=== PATIENT | female | born 1975 | race Caucasian/White ===

== ENCOUNTER 2019-04-14 11:21 | Inpatient (IN) ==
[2019-04-14] MEDS ORDERED: ZOFRAN IV ONE ×2 (12:29→16:05)
[2019-04-14] MEDS ORDERED: TORADOL IV ONE (12:29)
[2019-04-14] MEDS ORDERED: NS 1,000 ML IV ONE ×2 (12:29→18:36)
[2019-04-14] MEDS ORDERED: MORPHINE IV ONE ×2 (12:29→16:05)
--- NOTE | 2019-04-14 12:43 | Diag Imaging Result Doc PS360 ---
EXAM: KUB ABDOMEN 04/14/2019 HISTORY: bilateral flank pain, hx stones TECHNIQUE: KUB COMMENT: There is stool in the ascending colon. There is no evidence of bowel obstruction organomegaly or mass. There is curvature of the lumbar spine with convexity to the left. There is an apparent stone just above the right transverse process of L2. IMPRESSION: Possible stone in the right ureteropelvic junction. Otherwise nonspecific abdomen. Electronically signed by Patel Sutton 04/14/2019 12:40 PM
[2019-04-14 13:26] LABS: URINE SOURCE CLEAN CATCH
[2019-04-14 13:45] LABS: BILIRUBIN URINE NEGATIVE (NEGATIVE); BLOOD URINE MODERATE (NEGATIVE); COLOR YELLOW; GLUCOSE URINE NEGATIVE (NEGATIVE); KETONE URINE NEGATIVE (NEGATIVE); LEUKOCYTES URINE LARGE (NEGATIVE); NITRITE URINE POSITIVE (NEGATIVE); PH URINE 5.5; PROTEIN URINE 50 mg/dL (NEGATIVE); SP GRAVITY URINE 1.028; TURBIDITY URINE HAZY (CLEAR); UROBILINOGEN URINE NORMAL (NORMAL)
[2019-04-14 13:46] LABS: UR EPITHELIAL CELLS <10 /HPF (<10); URINE BACTERIA 4+ /HPF; URINE RBC TNTC /HPF (<10); URINE WBC TNTC /HPF (<10)
[2019-04-14 13:59] LABS: BASO# 0.02 X1000 (0.0-0.2); BASO% 0.2 % (0.0-0.8); EOS# 0.08 X1000 (0.0-0.7); EOS% 0.6 % (0.0-10.0); HEMATOCRIT 41.9 % (37.0-47.0); HEMOGLOBIN 14.1 g/dL (12.0-16.0); IMM GRAN# 0.03 X1000 (0.0-0.04); IMM GRAN% 0.2 % (0.0-0.5); LYMPH# 1.25 X1000 (1.2-3.4); LYMPH% 9.8 % (20.5-51.1); MCH 31.7 PG (27-31); MCHC 33.7 g/dL (33-37); MCV 94.2 FL (81-99); MONO% 4.7 % (1.7-9.3); MPV 10.1 FL (7.4-10.4); NEUT# 10.83 X1000 (1.4-6.5); NEUT% 84.5 % (42.2-75.2); PLT 267 X1000 (130-400); RBC 4.45 XMIL (4.2-5.4); RDW 11.8 % (11.5-14.5); WBC 12.81 X1000 (4.8-10.8)
[2019-04-14 14:56] LABS: ALB/GLOB RATIO 1.9; ALBUMIN 4.4 g/dL (3.5-5.0); CALCIUM 8.5 mg/dL (8.8-10.2); POTASSIUM 3.8 mmol/L (3.5-5.1); TOTAL BILIRUBIN 0.26 mg/dL (0.20-1.00); TOTAL PROTEIN 6.7 g/dL (6.3-8.3)
--- NOTE | 2019-04-14 15:07 | Diag Imaging Result Doc PS360 ---
EXAM: CT RENAL STONE SEARCH 04/14/2019 HISTORY: right flank pain, hx of stones TECHNIQUE: This exam was performed using automated exposure control, adjustment of mA or kV according to patient size, and/or use of iterative reconstruction technique. COMMENT: The current study is compared with 07/13/2012. There are calcifications in the spleen. There are no apparent gallstones. There is no evidence of nephrolithiasis. There is hydronephrosis on the right and there is a stone at the ureteropelvic junction on the right which was not previously present and which measures over 7 mm. There has been appendectomy. There is diverticulosis in the sigmoid colon without evidence of diverticulitis. There is no evidence of free air or free fluid. The regional skeleton appears to be intact. IMPRESSION: Obstructing stone at the right UPJ. Electronically signed by Patel Sutton 04/14/2019 3:05 PM
[2019-04-14] MEDS ORDERED: ROCEPHIN 1 GM in NS 50 ML IV ONE (16:05)
[2019-04-14] MEDS ORDERED: ZOFRAN ODT PO ONE (17:21)
[2019-04-14] MEDS ORDERED: TYLENOL PO ONE (17:23)
--- NOTE | 2019-04-14 17:39 | PROVIDER DOCUMENTATION ---
This chart was entered by Jesus Chandra Scribe, acting as scribe for Will June MD. HPI-Abdominal Pain/GI Problem - General Chief Complaint: Female Stated Complaint: FEMALE Time Seen by Provider: 04/14/19 12:18 Source: patient Allergies/Adverse Reactions: Patient Allergies Allergy/AdvReac Type Severity Reaction Status Date / Time codeine [Codeine] Allergy Mild HIVES Verified 06/12/18 08:29 Home Medications: Home Medication List Medication Instructions Recorded Confirmed Last Taken Type Citalopram [Celexa] 40 mg PO DAILY 01/31/13 11/06/18 11/06/18 History Levothyroxine [Synthroid] 75 microgm PO DAILY 01/31/13 11/06/18 11/06/18 History Cetirizine HCl [Zyrtec] 10 mg PO DAILY 06/10/18 11/06/18 11/05/18 History - History of Present Illness-ABD Nature of Presenting Problems: 43 y/o F presents to the ED c/o right flank pain. Onset around 0800 while at work. Patient reports since the pain started she has had nausea and vomiting. Patient does report some diaphoresis prior to vomiting. Patient reports a known history of kidney stones and had has lithotripsy previously. Patient has seen Dr Alfonso in the past. Patient denies fever, diarrhea and all other symptoms. Abdominal Pain Onset Location: reports: flank Quality of Pain: reports: aching Severity in ED: reports: moderate Onset/Duration: reports: 4-6 hours ago Timing: reports: still present Activities at Onset: reports: none Modifying Factors: improves with: nothing Associated Symptoms: reports: diaphoresis, nausea, vomiting Similar Symptoms Previously?: Yes Recently seen or treated by another doctor?: No Review of Systems - Adult - REVIEW OF SYSTEMS - ADULT Constitutional: denies: chills, fever Eyes: reports: no symptoms reported Ears, Nose, Mouth & Throat: reports: no symptoms reported Cardiovascular: denies: chest pain, palpitations Respiratory: denies: shortness of breath, wheezing Gastrointestinal: reports: abdominal pain, nausea, vomiting. denies: diarrhea Genitourinary: reports: flank pain. denies: dysuria, frequency Musculoskeletal: reports: no symptoms reported Integumentary: reports: no symptoms reported Neurological: reports: no symptoms reported Psychiatric: reports: no symptoms reported Endocrine: reports: no symptoms reported Hematologic/Lymphatic: reports: no symptoms reported Allergic/Immunologic: reports: no symptoms reported All Other Systems: Reviewed and Negative Past History - Adult - PAST MEDICAL HISTORY-ADULT Review of Records: reports: Nursing Assessment Review, Medications Reviewed Major Childhood Illnesses: reports: denies history Cardiovascular: reports: denies history Respiratory: reports: denies history Gastrointestinal: reports: denies history Obstetrical/Gynecological: reports: denies history Genitourinary: reports: kidney stones Musculoskeletal: reports: denies history Neurological: reports: headaches/migraines Psychiatric: reports: anxiety Endocrine/Immune: reports: thyroid disorder Other Conditions: reports: denies history - PRIOR SURGERIES/PROCEDURES Surgical/Procedure History: reports: appendectomy, other - IMMUNIZATION STATUS Childhood Immunizations: See Nurse Assessment Flu Vaccine: See Nurse Assessment Physical Exam-General - PHYSICAL EXAM-ADULT Initial Vital Signs Reviewed: Yes - CONSTITUTIONAL General Appearance: alert, no apparent distress - HEAD, EARS, NOSE, MOUTH & THROAT HENMT: moist mucous membranes - NECK Neck: full range of motion, normal inspection - RESPIRATORY Respiratory: lungs clear, normal breath sounds, no respiratory distress, no ac cessory muscle use - CARDIOVASCULAR Cardiovascular: normal peripheral pulses, regular rate, rhythm - GASTROINTESTINAL (ABDOMEN) Abdominal Exam: non tender, soft - MUSCULOSKELETAL Back Exam: CVA tenderness (right with light percussion) - SKIN Integumentary: normal color, warm/dry - PSYCHIATRIC Psych/Mental Status: normal mood/affect, oriented x 3 Progress - PLAN OF CARE/RESULTS Progress/Plan/Lab Results: Vital Signs - 8 hr 04/14/19 11:23 Temperature 97.8 F Pulse Rate 88 Respiratory Rate 16 Blood Pressure 131/81 O2 Sat by Pulse Oximetry 97 Orders Category Date Time Status ED: Orthostatic Vital Signs (E as directed Care 04/14/19 12:[address] RENAL STONE SEARCH [CT] Stat Exams 04/14/19 12:30 Ordered KUB ABDOMEN [RAD] Stat Exams 04/14/19 12:14 Taken CBC WITH ELECTRONIC DIFF [HEME] Stat Lab 04/14/19 12:30 Uncollected COMPREHENSIVE METABOLIC PANEL [CHEM] Stat Lab 04/14/19 12:30 Uncollected URINALYSIS W/POSS RFLX CULT [URINALYSIS] Stat Lab 04/14/19 12:13 Uncollected 0.9% Sodium Chloride Inj [Ns] 1,000 ml Med 04/14/19 12:29 Active IV 999 mls/hr Ketorolac [Toradol] Med 04/14/19 12:29 Discontinued 30 mg IV NOW ONE Morphine Med 04/14/19 12:29 Discontinued 4 mg IV NOW ONE Ondansetron [Zofran] Med 04/14/19 12:29 Discontinued 4 mg IV NOW ONE Result Diagrams: 04/14/19 13:50 04/14/19 13:50 - REASSESSMENT Reassessment #1 Time Reassessed: 16:10 Status: unchanged (Patient still hurting after IV morphine/zofran/toradol. WIll repeat Morphine/zofran and give Rocephin for UTI. Will call Drs. Alfonso and Danika) - CT/MRI 1 CT Study: Renal Stone Impression: Abnormal ( EXAM: CT RENAL STONE SEARCH 04/14/2019 HISTORY: right flank pain, hx of stones TECHNIQUE: This exam was performed using automated exposure control, adjustment of mA or kV according to patient size, and/or use of iterative reconstruction technique. COMMENT: The current study is compared with 07/13/2012. There are calcifications in the spleen. There are no apparent gallstones. There is no evidence of nephrolithiasis. There is hydronephrosis on the right and there is a stone at the ureteropelvic junction on the right which was not previously present and which measures over 7 mm. There has been appendectomy. There is diverticulosis in the sigmoid colon without evidence of diverticulitis. There is no evidence of free air or free fluid. The regional skeleton appears to be intact. IMPRESSION: Obstructing stone at the right UPJ. Electronically signed by Patel Sutton 04/14/2019 3:05 PM 04/14/19 3609 Interpreting Physician: Patel Sutton MD Dictated Date/Time: 04/14/19 1506 cc: Will June MD; Ok Garnica MD), See EMR Report - CONSULTS/PCP/HOSPITALIST Notification #1 *Consult/PCP/Hospitalist*: Kaden paged [phone] #2 Consult: Danika paged at 1600 Time Discussed: 17:38 (Pizarro) Departure - Departure Date of Disposition Decision: 04/14/19 Time of Disposition Decision: 16:12 DIAGNOSIS: Ureteral obstruction, right, Right distal ureteral calculus, Pyelonephritis of right kidney Disposition: ADMITTED INPATIENT 09 Certified Medical Emergency: Emergent Condition: Fair Referrals and Follow-Ups: Ok Garnica MD [Primary Care Provider] - - Critical Care Note This patient required my direct & personal management of CC.: No Attestation - Physician/ PRASANNA Attestation Patient care was provided by Advanced Practice Provider:: No The physician spent face to face time with patient:: Yes Advanced Practice Provider documentation review:: Supervising physician onsite and consulted in the evaluation and care of this patient. The physician did have a face to face encounter with the patient. This chart was documented by the indicated scribe, (Jesus Chandra Scribe) and accurately reflects the services I performed and decisions made by me, Will June MD, as attested by the provider's signature.
[2019-04-14] MEDS ORDERED: MORPHINE IV PRN (18:36)
[2019-04-14] MEDS ORDERED: TYLENOL PO PRN (18:36)
[2019-04-14] MEDS: MORPHINE IV PRN (19:12)
[2019-04-14] MEDS: ZOFRAN IV PRN ×2 (19:14→22:56)
--- NOTE | 2019-04-14 21:34 | HISTORY AND PHYSICAL ---
CHIEF COMPLAINT: Dysuria and right flank pain. HISTORY OF PRESENT ILLNESS: The patient is a 43-year-old white female who has had kidney stones on 4 or 5 previous occasions, who presents with some burning on urination and right flank pain. Thought she might be getting another stone. Came to the emergency room. CT scan was done which shows a greater than 7 mm stone at the right UP junction. Urinalysis shows WBCs too numerous to count, RBCs too numerous to count, 4+ bacteria in the blood, positive nitrite. White count 12,810, hemoglobin 14.1, hematocrit 41.9. Emergency room has already talked with Urology who plans on removing the stone, either through lithotripsy or basket retrieval, but needed her admitted to the hospital, and her urinary tract infection treated as well. PAST MEDICAL HISTORY: Includes: 1. Lumbar disk disease, for which she has had 2 laminectomies. 2. Tonsillectomy. 3. Appendectomy. 4. History of medullary thyroid carcinoma, for which she has had either 1 or 2 surgeries and has seen a specialist in the [facility] now. ALLERGIES: Codeine; breaks out in a rash and gets nauseated from it. SOCIAL HISTORY: Patient is , has no children. Did not get drinking and smoking history yet. REVIEW OF SYSTEMS: Neurological: Denies seizures, visual problems, hearing problems. Occasionally gets headaches, but does not have one today. Respiratory: Denies shortness of breath, cough, wheezing. Cardiovascular: Denies chest pains, heart palpitations, PND, orthopnea. GI: Denies hematochezia, hematemesis, melena, constipation, diarrhea, nausea, vomiting. : See Present Illness. Patient has had some burning on urination and right flank pain. Endocrine: Does have some thyroid disease after having medullary carcinoma, and is on levothyroxine. The patient has also had some depression and is on Celexa. She also takes Zyrtec for allergies. PHYSICAL EXAMINATION: VITAL SIGNS: Blood pressure is 131/81, respirations 16, pulse 88, temperature 97.8 degrees Fahrenheit. Oxygen saturation is 97% on room air. Patient has had some pain medication. HEENT: She is normocephalic. EOMS intact. PERRLA. Throat clear. Fundi benign. NECK: Supple, without thyromegaly, lymphadenopathy, or carotid bruits. LUNGS: Clear to auscultation and percussion without rhonchi, rales, or wheezes. HEART: Regular rate and rhythm without murmurs, gallops, friction rubs. ABDOMEN: Soft. Active bowel sounds. No organomegaly or tenderness. NEUROLOGICAL: Cranial nerves 2 through 12 intact grossly. Sensory and motor intact. Reflexes 1+ all. BREASTS: Exam deferred. PELVIC: Exam deferred. RECTAL: Exam deferred. CT scan shows a greater than 7 mm stone at the UV junction on the right. This was also seen on her KUB. Laboratory shows a white count of 12,810, hemoglobin 14.1. Urinalysis, as above, showed too numerous to count WBCs and RBCs. ASSESSMENT: 1. Stone at the UP junction greater than 7 mm. 2. Urinary tract infection. PLAN: Will admit, start on intravenous antibiotics. Will get cultures. Have consulted Urology already. Please see orders. cc: MD Ok Benitez Jr, MD MTDD
[2019-04-14] MEDS: TORADOL IV PRN (23:00)
[2019-04-15] MEDS: MORPHINE IV PRN ×2 (01:23→21:22)
--- NOTE | 2019-04-15 04:08 | CONSULTATION ---
DATE OF CONSULTATION: 04/14/2019 ATTENDING AND REFERRING PHYSICIAN: Dr. Garnica. CHIEF COMPLAINT: Right flank pain. HISTORY OF PRESENT ILLNESS: This 43-year-old female with long history of renal lithiasis developed severe right flank pain. Evaluation revealed an obstructing right UPJ stone. The patient has had shockwave lithotripsy, ureteroscopy, and stone extraction previously the last time 8 years ago. The patient denies taking any type of anticoagulants. PAST MEDICAL HISTORY: Thyroid cancer, depression, and renal lithiasis. CURRENT MEDICATIONS: Synthroid and Celexa. PAST SURGICAL HISTORY: Lower back surgery x2. Thyroidectomy. Breast reduction. Abdominoplasty. Appendectomy, and as noted in the HPI. SOCIAL HISTORY: She denies tobacco use, occasional alcohol use. ALLERGIES: She is allergic to codeine. REVIEW OF SYSTEMS: She states otherwise in good health. She denies any chest pains, heart disease, pulmonary or bowel problems. PHYSICAL EXAMINATION: General: A mildly obese, age apparent, normally developed, white female, oriented in all ways and cooperative. HEENT: Normal for age. Lungs: Clear. Cardiovascular: Regular rate and rhythm. Abdomen: Mildly protuberant soft, and nontender. No hepatosplenomegaly or masses. Normal bowel sounds. Back: No left CVA tenderness. Right positive CVA tenderness. Genitourinary: Deferred until surgery. Extremities: No clubbing, cyanosis, or edema. Neurologic: No focal deficits. CT stone search is as noted in the HPI. IMPRESSION: Right UPJ stone. PLAN: Right extracorporeal shockwave lithotripsy, the planned procedure, benefits versus risks, and possible complications, including, but not limited to, bleeding, infection, not being able to break up the stone, not being able to pass stone fragments, and need for further stone surgery was discussed. She seems to understand and desires to proceed. cc: MD Ok Calzada MD
[2019-04-15] MEDS: ROCEPHIN 1 GM in NS 50 ML IV SCH ×2 (04:52→16:37)
[2019-04-15] MEDS: ZOFRAN IV PRN ×2 (04:58→21:22)
[2019-04-15] MEDS ORDERED: ROCEPHIN 1 GM in NS 50 ML IV SCH (05:00)
[2019-04-15 07:33] LABS: BASO# 0.01 X1000 (0.0-0.2); BASO% 0.1 % (0.0-0.8); HEMOGLOBIN 11.5 g/dL (12.0-16.0); IMM GRAN# 0.09 X1000 (0.0-0.04); IMM GRAN% 0.6 % (0.0-0.5); LYMPH# 0.16 X1000 (1.2-3.4); MCH 31.4 PG (27-31); MCHC 32.9 g/dL (33-37); MCV 95.6 FL (81-99); MONO# 0.21 X1000 (0.11-0.59); MONO% 1.4 % (1.7-9.3); MPV 10.2 FL (7.4-10.4); NEUT% 96.9 % (42.2-75.2); PLT 174 X1000 (130-400); RBC 3.66 XMIL (4.2-5.4); RDW 12.1 % (11.5-14.5); WBC 15.37 X1000 (4.8-10.8)
[2019-04-15 07:57] LABS: ANISOCYTOSIS 1+; BANDS 2 % (0-1); LYMPHS 2 % (21-51); MONO 2 % (1-9); SEGS 94 % (42-75)
[2019-04-15 07:58] LABS: POLYCHROM 1+
[2019-04-15] MEDS: SYNTHROID PO SCH (08:05)
[2019-04-15 08:10] LABS: CALCIUM 7.2 mg/dL (8.8-10.2); CREATININE 1.4 mg/dL (0.5-0.9); POTASSIUM 4.4 mmol/L (3.5-5.1)
[2019-04-15] MEDS ORDERED: CELEXA PO SCH (09:00)
--- NOTE | 2019-04-15 14:17 | PROGRESS NOTE ---
DATE: 04/15/2019 SUBJECTIVE: Patient preparing for cystoscopic exam per Dr. Alfonso. Noted to have kidney stone at the right UPJ, 7 mm. OBJECTIVE: Vital signs: Afebrile, pulse 101, respirations 18, blood pressure 114/59, O2 saturation on room air 100%. CV: RRR. No murmur. Lungs: CTA. Extremities: No calf tenderness, cords, or edema. Neurologic: Cranial nerves intact. No focal deficits. LABORATORY: White count went up from 12.8 yesterday to 15.3, hemoglobin 11.5, platelets 174,000. Urine culture so far growing out gram-negative rods. Blood cultures x2 negative. Sodium 139, potassium 4.4, chloride 105, CO2 21, BUN 15, creatinine 1.4, up from 1.0 yesterday, glucose 111, calcium 7.2, plasma lactate yesterday 1.5. ASSESSMENT: 1. Right ureteropelvic junction stone, 7 mm. 2. Gram-negative barry urinary tract infection. 3. History of medullary thyroid carcinoma, followed at [facility]. 4. Hypothyroidism. PLAN: Continue IV Rocephin, IV fluids, with cystoscopy per Dr. Alfonso this afternoon. Repeat labs in the morning. Follow the urine culture. She is receiving Toradol and morphine for pain. Continue Synthroid. cc: Ok Garnica MD
[2019-04-15] MEDS ORDERED: DIPRIVAN 1% ONE (14:25)
[2019-04-15] MEDS ORDERED: TRANSDERM-SCOP ONE (14:34)
[2019-04-15] MEDS ORDERED: DECADRON ONE (15:01)
[2019-04-15] MEDS ORDERED: ZOFRAN ONE (15:01)
[2019-04-15] MEDS ORDERED: FENTANYL ONE (15:05)
[2019-04-15] MEDS ORDERED: XYLOCAINE-MPF 2% ONE (15:14)
[2019-04-15] MEDS: PHENERGAN ONE ×3 (15:48→16:42)
[2019-04-15] MEDS: MORPHINE ONE ×4 (15:59→17:17)
--- NOTE | 2019-04-15 21:34 | OPERATIVE NOTE ---
PROCEDURE DATE: 04/15/2019 SURGEON: Kaden. PREOPERATIVE DIAGNOSIS: Right proximal ureteral stone. POSTOPERATIVE DIAGNOSIS: Right proximal ureteral stone. PROCEDURE PERFORMED: Extracorporeal shockwave lithotripsy of the right proximal stone. ANESTHESIA: General via laryngeal mask. FINDINGS: An approximate 7 to 8 mm stone in the right proximal ureter. INDICATION FOR PROCEDURE: This 43-year-old female, with history of renolithiasis, developed severe right flank pain. Evaluation revealed a large stone obstructing the right proximal ureter. DESCRIPTION OF PROCEDURE: After informed consent was obtained from the patient, and her receiving IV antibiotics, she was taken to the main OR and placed in the supine position. General anesthesia via laryngeal mask was achieved. She was then placed in the proper position for right extracorporeal shockwave lithotripsy. The stone received 2500 shocks. Energy level was started at 1 and ramped to 7. She received 12.5 g of mannitol at the start of the case. The stone was completely fragmented. She tolerated the procedure well. Estimated blood loss was 0. Total fluoroscopy time 1 minute 32 seconds. She was taken to recovery room in good condition. cc: MD Ok Calzada MD
[2019-04-16] MEDS: ROCEPHIN 1 GM in NS 50 ML IV SCH (05:14)
[2019-04-16 07:37] LABS: BASO# 0.01 X1000 (0.0-0.2); BASO% 0.1 % (0.0-0.8); HEMATOCRIT 33.3 % (37.0-47.0); HEMOGLOBIN 10.8 g/dL (12.0-16.0); IMM GRAN# 0.06 X1000 (0.0-0.04); IMM GRAN% 0.4 % (0.0-0.5); LYMPH# 0.87 X1000 (1.2-3.4); LYMPH% 5.5 % (20.5-51.1); MCH 31.2 PG (27-31); MCHC 32.4 g/dL (33-37); MCV 96.2 FL (81-99); MONO# 0.73 X1000 (0.11-0.59); MONO% 4.6 % (1.7-9.3); MPV 10.7 FL (7.4-10.4); NEUT# 14.09 X1000 (1.4-6.5); NEUT% 89.4 % (42.2-75.2); PLT 156 X1000 (130-400); RBC 3.46 XMIL (4.2-5.4); WBC 15.76 X1000 (4.8-10.8)
[2019-04-16 07:54] LABS: BANDS 16 % (0-1); LYMPHS 2 % (21-51); MONO 2 % (1-9); SEGS 80 % (42-75)
[2019-04-16 08:02] LABS: CALCIUM 8.6 mg/dL (8.8-10.2); POTASSIUM 4.5 mmol/L (3.5-5.1)
[2019-04-16] MEDS ORDERED: FLOMAX PO ONE (09:00)
--- NOTE | 2019-04-16 10:36 | PROGRESS NOTE ---
DATE: 04/16/2019 SUBJECTIVE: Patient overall feeling better. No major pain. She underwent lithotripsy yesterday. Her blood cultures and urine culture growing out Escherichia coli. OBJECTIVE: Afebrile, pulse 55, respirations 16, blood pressure 103/70. O2 saturation 99 to 100%. CV RRR. No murmur lungs CTA. Neck:There is mild right CVA tenderness abdomen is soft, NT, ND. No mass. No HSM. Extremities: No calf tenderness cords or edema. Neuro: Cranial nerves 2-12 intact. No focal deficits. LABORATORY DATA: White count remains elevated at 15,000, platelets 156,000, hemoglobin 10.8. Sodium 140, potassium 4.5, chloride 107, CO2 23, BUN 16, creatinine 1.0, calcium 8.6. ASSESSMENT: 1. Escherichia coli sepsis/urosepsis. 2. Escherichia coli urinary tract infection complicated by kidney stone, now status post lithotripsy. 3. History of medullary carcinoma of thyroid. 4. Hypothyroidism secondary to previous [facility]roidectomy, [facility] PLAN: We will continue IV fluids but decrease the rate, ambulate the patient. Change from Rocephin to Levaquin and will monitor her leukocytosis and her clinically. If she does well, will be able to be discharged home tomorrow as Dr. Solomon is covering. cc: Ok Garnica MD
[2019-04-16] MEDS: LEVAQUIN 750 MG/D5W 750 MG/150 ML IVPB IV SCH (11:21)
[2019-04-16] MEDS: SYNTHROID PO SCH (11:22)
[2019-04-16] MEDS: ZOFRAN IV PRN ×2 (12:11→20:52)
[2019-04-16] MEDS: MORPHINE IV PRN ×2 (13:28→20:52)
[2019-04-17] MEDS: MORPHINE IV PRN ×3 (03:48→19:46)
[2019-04-17 07:13] LABS: BASO# 0.02 X1000 (0.0-0.2); BASO% 0.1 % (0.0-0.8); EOS# 0.04 X1000 (0.0-0.7); EOS% 0.3 % (0.0-10.0); HEMATOCRIT 34.1 % (37.0-47.0); HEMOGLOBIN 11.2 g/dL (12.0-16.0); IMM GRAN# 0.05 X1000 (0.0-0.04); IMM GRAN% 0.4 % (0.0-0.5); LYMPH# 1.17 X1000 (1.2-3.4); LYMPH% 8.5 % (20.5-51.1); MCH 31.1 PG (27-31); MCHC 32.8 g/dL (33-37); MCV 94.7 FL (81-99); MONO# 0.44 X1000 (0.11-0.59); MONO% 3.2 % (1.7-9.3); MPV 10.6 FL (7.4-10.4); NEUT# 12.07 X1000 (1.4-6.5); NEUT% 87.5 % (42.2-75.2); PLT 150 X1000 (130-400); WBC 13.79 X1000 (4.8-10.8)
[2019-04-17 07:35] LABS: CALCIUM 7.8 mg/dL (8.8-10.2); POTASSIUM 3.7 mmol/L (3.5-5.1)
[2019-04-17] MEDS: LEVAQUIN 750 MG/D5W 750 MG/150 ML IVPB IV SCH (08:06)
[2019-04-17] MEDS: ZOFRAN IV PRN ×2 (08:06→19:46)
[2019-04-17] MEDS: SYNTHROID PO SCH (08:06)
[2019-04-17 08:08] LABS: BANDS 6 % (0-1); LYMPHS 4 % (21-51); MONO 2 % (1-9); SEGS 88 % (42-75)
--- NOTE | 2019-04-17 13:39 | PROGRESS NOTE ---
DATE: 04/17/2019 A 43-year-old pleasant white female admitted to the hospital on 04/14/2019 for E. coli sepsis. The patient had 7 mm stone at the UP junction and had a lithotripsy done by Dr. Alfonso. The patient is anxious to go home. She has been walking around. Nevertheless, white cell count is still high and she had E. coli in the urine as well as in the blood. REVIEW OF SYSTEMS: None reported. PAST MEDICAL HISTORY: Reviewed. PAST SURGICAL HISTORY: Reviewed. MEDICATIONS: Reviewed. ALLERGIES: Codeine. PHYSICAL EXAMINATION: Vital Signs: Temperature is 97.4 degrees, pulse 66, blood pressure 131/82, oxygen saturation 93% on room air. HEENT: Within normal limits. She has a scar right across the neck from a prior thyroidectomy. Chest: Clear. Heart: Sounds are regular. Abdomen: Belly is soft. Nontender in the right flank area. Neurological: No signs of neurological deficits. Rest of the exam is benign. INVESTIGATIONS: White cell count 13.79, hematocrit 34, and platelets 150. Sodium 139, potassium 3.7, chloride 105, BUN 12, and creatinine 1. Blood cultures and urine cultures positive for E. coli. ESBL is negative, sensitive to Levaquin. ASSESSMENT AND PLAN: 1. Escherichia coli sepsis. Continue IV Levaquin. 2. Status post near total thyroidectomy for medullary carcinoma of the thyroid under the care of [facility] and the [facility]. Positive lymph nodes. Follow up on calcitonin levels remission. 3. Hypothyroidism. On Synthroid 75 mcg daily. 4. Calcium levels are normal. I explained to the patient that we will continue IV antibiotics until the white cell count has come back to normal and repeat the blood cultures today. 5. History of kidney stones, status post lithotripsy on the right side by ryley Rutledge. Continue on a low oxalate diet. Level of documentation is 35 minutes. cc: MD kO Oh MD [facility]
[2019-04-18] MEDS: ZOFRAN IV PRN ×5 (01:07→22:17)
[2019-04-18] MEDS: MORPHINE IV PRN ×6 (01:07→22:17)
[2019-04-18] MEDS: TORADOL IV PRN (02:33)
[2019-04-18 07:27] LABS: BASO# 0.02 X1000 (0.0-0.2); BASO% 0.2 % (0.0-0.8); EOS# 0.07 X1000 (0.0-0.7); EOS% 0.8 % (0.0-10.0); HEMATOCRIT 35.3 % (37.0-47.0); HEMOGLOBIN 11.5 g/dL (12.0-16.0); IMM GRAN# 0.12 X1000 (0.0-0.04); IMM GRAN% 1.4 % (0.0-0.5); LYMPH# 1.42 X1000 (1.2-3.4); MCH 30.7 PG (27-31); MCHC 32.6 g/dL (33-37); MCV 94.4 FL (81-99); MONO# 0.57 X1000 (0.11-0.59); MONO% 6.8 % (1.7-9.3); MPV 10.4 FL (7.4-10.4); NEUT# 6.13 X1000 (1.4-6.5); NEUT% 73.8 % (42.2-75.2); PLT 169 X1000 (130-400); RBC 3.74 XMIL (4.2-5.4); RDW 11.7 % (11.5-14.5); WBC 8.33 X1000 (4.8-10.8)
[2019-04-18 07:42] LABS: AGAP 12; BUN 11 mg/dL (8-22); CHLORIDE 103 mmol/L (98-107); COSMO 276; CREATININE 0.9 mg/dL (0.5-0.9); ESTIMATED GFR > 60; GLUCOSE 82 mg/dL (70-104); POTASSIUM 3.8 mmol/L (3.5-5.1); SODIUM 139 mmol/L (136-145); TCO2 24 mmol/L (25-35)
[2019-04-18] MEDS: SYNTHROID PO SCH (08:10)
[2019-04-18] MEDS: LEVAQUIN 750 MG/D5W 750 MG/150 ML IVPB IV SCH (08:10)
[2019-04-18 08:44] LABS: CALCIUM 8.8 mg/dL (8.8-10.2)
--- NOTE | 2019-04-18 15:47 | PROGRESS NOTE ---
DATE: 04/18/2019 SUBJECTIVE: The patient complains of right flank pain, similar pain when she had a kidney stone. There was no stent placed. Lithotripsy was done. Repeat blood cultures, urine culture yesterday. Dr. Alfonso has seen this patient this morning. Otherwise no complaints. PHYSICAL EXAMINATION: Vitals: Temperature is 97 degrees. Pulse is 62, blood pressure 129/79. HEENT: Within normal limits. Chest: Clear. Heart: Sounds are regular. Abdomen: Belly is soft, slightly tender in the right flank area. Neurologic: No other deficits neurologically. INVESTIGATIONS: White cell count came down to 8.3, hematocrit 35, platelet 169,000. SMA 7 was normal. Repeat urine and blood cultures are pending. ASSESSMENT AND PLAN: 1. Urosepsis. 2. Right kidney stone status post lithotripsy. 3. Medullary carcinoma of thyroid, stable. PLAN OF CARE: 1. Continue IV antibiotics. 2. Follow up on repeat cultures. 3. Ultrasound of the renal to see if hydronephrosis since she is in pain. 4. We will hold the discharge until Dr. Garnica comes back in the morning. LEVEL OF DOCUMENTATION: 25 minutes. cc: MD Ok Oh MD
--- NOTE | 2019-04-18 19:05 | Diag Imaging Result Doc PS360 ---
EXAM: US RENAL 1 (LIMITED)-RIGHT HISTORY: increased pain to right side TECHNIQUE: Right kidney ultrasound COMPARISON: None. FINDINGS: The right kidney measures 11.6 x 5.8 x 5.3 cm. There are several small renal stones. Mildly dilated renal pelvis. Normal cortical thickness and renal echogenicity. The urinary bladder is only mildly distended. IMPRESSION: Small scattered renal stones with mild renal pelvis dilatation Electronically signed by Silvio Cook 04/18/2019 7:02 PM
[2019-04-19] MEDS: LEVAQUIN 750 MG/D5W 750 MG/150 ML IVPB IV SCH (08:35)
[2019-04-19] MEDS: SYNTHROID PO SCH (08:36)
[2019-04-19] MEDS: MORPHINE IV PRN ×2 (08:41→13:03)
[2019-04-19] MEDS: ZOFRAN IV PRN (08:41)
[2019-04-19 12:25] VITALS: BP 101/72
[2019-04-19] MEDS ORDERED: ZOFRAN PO PRN (13:00)
--- NOTE | 2019-04-19 13:59 | PROGRESS NOTE ---
DATE: 04/19/2019 SUBJECTIVE: The patient is having some pain but not severe. She had been held up due to this pain. Renal ultrasound is not particularly remarkable. OBJECTIVE: Afebrile. Vital signs stable.CV: RRR without murmur. Lungs: CTA. Back: No CVA tenderness. Abdomen: Soft, NT, ND. No mass. No HSM. Extremities: No calf tenderness, cords or edema. Neurologic: Cranial nerves are intact. No focal deficits. LABORATORY DATA: Reviewed from 04/18 which was normal. ASSESSMENT: 1. Escherichia coli sepsis/urosepsis. 2. Escherichia coli urinary tract infection complicated by kidney stone now status past status post lithotripsy per Dr. Alfonso. 3. History of medullary carcinoma of the thyroid. 4. Hypothyroidism secondary to previous thyroidectomy followed at [facility]. PLAN: Discharge home on her Celexa and Synthroid and will add Levaquin for 10 more days to complete 14 day course and [place] 7.5, 15 pills of that 1 q.6 hours p.r.n. pain, given on prescription and we will discharge her home and follow up with me in [address] Alfonso in 2 weeks. cc: Ok Garnica MD
--- NOTE | 2019-05-24 09:05 | DISCHARGE SUMMARY ---
ADMISSION DATE: 04/14/2019 DISCHARGE DATE: 04/19/2019 DIAGNOSES: 1. Escherichia coli sepsis/urosepsis. 2. Escherichia coli urinary tract infection complicated by kidney stone, now status post lithotripsy per Dr. Alfonso. 3. History of medullary carcinoma of the thyroid, followed at [facility]. 4. Hypothyroidism, followed at [facility]. 5. Depression. CONSULTANTS: Dr. Alfonso, urology. PROCEDURES: 1. Abdominal x-ray/KUB done on 04/14/2019 revealing possible stone in the right UPJ area. 2. CT renal stone search done on 04/14/2019 revealing obstructive stone at the right UPJ at 7 mm diameter. 3. Extracorporeal shock wave lithotripsy of the right proximal stones done on 04/15/2019. 4. Renal ultrasound done 04/18/2019 revealing small scattered renal stones with mild renal pelvis dilation. REASON FOR ADMISSION AND HOSPITAL COURSE: The patient is a 43-year-old, white female followed in my medical practice who came in with burning on urination and right flank pain. She was noted to have a 7 mm renal stone and urinalysis was abnormal. Patient was placed on IV antibiotics and Dr. Alfonso was consulted. The patient was treated with the IV Rocephin, IV fluids, and lithotripsy was performed. The patient was maintained on her Synthroid. The patient subsequently grew out E. coli, both in her blood cultures and in her urine culture. It was sensitive to the Rocephin but was more sensitive to Levaquin. Thus, we transitioned over to Levaquin. Patient showed improvement. By 04/19/2019, she was discharged home to complete a 14 day course of Levaquin 750 mg p.o. daily, [place] 7.5 one p.o. q.6 hours p.r.n. pain. She resumed her home dose of Celexa at 40 mg p.o. daily and her Synthroid at 75 mcg p.o. daily, Flomax 0.4 mg p.o. daily. She will follow up with Dr. Alfonso. She will follow with me in 1 to 2 weeks. cc: Ok Garnica MD
== END 2019-04-19 14:30 | disposition home or self-care (01) | DRG 872 ==
LOC: ED 11:21 → 3N 11:21 → OBSVTOIN 11:22
PROVIDERS: ADMIT Family Medicine; ATTEND Family Medicine
PROC: UR.ESWL (2019-04-15 14:57)